=== PATIENT | male | born 1995 | race Caucasian/White ===

== ENCOUNTER → 2017-05-25 | Outpatient (CLI) | payer OTHER ==
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
== END ==
LOC: RAD 09:56
PROVIDERS: ATTEND Physician Assistant
DX: M79.641 Pain in right hand (principal)